=== PATIENT | male | born 1980 | race Caucasian/White ===

== ENCOUNTER → 2024-08-25 10:34 | Outpatient (REF) | payer OTHER, SELFPAY | LOC: RCS 10:34 | PROVIDERS: ATTENDING PHYSICIAN Nuclear Medicine Nuclear Cardiology; FAMILY PHYSICIAN Internal Medicine | DX: I49.8 Other specified cardiac arrhythmias (principal) | CPT/HCPCS: 93306 ==

== ENCOUNTER → 2024-09-06 11:25 | Outpatient (REF) | payer OTHER, SELFPAY | LOC: RCS 11:25 | PROVIDERS: ATTENDING PHYSICIAN Nuclear Medicine Nuclear Cardiology; FAMILY PHYSICIAN Internal Medicine | DX: I49.8 Other specified cardiac arrhythmias (principal) | CPT/HCPCS: 78452; 93017; A9500; J2785 ==